=== PATIENT | male | born 1950 | race Caucasian/White ===

== ENCOUNTER 2025-03-01 06:51 | Emergency (ER) | payer OTHER, MEDICAID ==
[~2025-03-01] VITALS: Ht 177.8 cm; Wt 156.0 kg
[2025-03-01] MEDS ORDERED: Gelatin Sponge 1 EACH SPON T ONE (07:15)
[2025-03-01] MEDS ORDERED: DERMABOND 1 EA APPL T ONE (07:27)
== END 2025-03-01 09:37 | disposition home or self-care (01) ==
LOC: ED 06:51
DX: I83.228 Varicose veins of left lower extremity with both ulcer of other part of lower extremity and inflammation (principal); Z88.8 Allergy status to other drugs, medicaments and biological substances